=== PATIENT | female | born 1960 | race Asian ===

== ENCOUNTER 2023-10-09 10:25 | Outpatient (CLI) | payer MEDICARE, BC | END 2023-10-09 10:26 | disposition home or self-care (01) | LOC: CSHMAMMO 10:25 | PROVIDERS: ATTEND Family Medicine Sports Medicine | DX: Z13.820 Encounter for screening for osteoporosis (principal); M85.89 Other specified disorders of bone density and structure, multiple sites; Z78.0 Asymptomatic menopausal state | CPT/HCPCS: 77080 ==